=== PATIENT | female | born 1970 | race Two or more races ===

== ENCOUNTER 2018-08-06 12:16 | Day surgery (SDC) | payer OTHER | END 2018-08-06 17:15 | disposition home or self-care (01) | LOC: AMB-ENDOS 12:16 | DX: K64.1 Second degree hemorrhoids (principal) ==

== ENCOUNTER 2025-03-17 09:40 | Emergency (ER) | payer OTHER ==
[~2025-03-17] VITALS: Ht 154.9 cm; Wt 68.0 kg
[2025-03-17] MEDS ORDERED: LIPITOR40 M1 PO (10:21)
[2025-03-17] MEDS ORDERED: KETOROLAC TROMETHAMINE 30 MG VIAL IM ONE (10:45)
[2025-03-17] MEDS ORDERED: ORPHENADRINE CITRATE 30 MG/ML AMPUL IM ONE (10:45)
== END 2025-03-17 12:51 | disposition home or self-care (01) ==
LOC: ER 09:41
DX: M62.838 Other muscle spasm (principal)